=== PATIENT | male | born 2000 ===

== ENCOUNTER 2023-08-06 15:26 | Inpatient (IN) | payer MEDICAID, SELFPAY ==
[2023-08-06 15:36] VITALS: PULSE 94; O2SAT 98
--- NOTE | 2023-08-06 16:10 | ED.PSYCH ---
HPI - Psych General Stated Complaint: Section 12, semi-cooperative Time Seen by Provider: 08/06/23 15:52 Source: patient Mode of arrival: EMS Limitations: other History of Present Illness HPI Narrative: Patient comes to emergency room via ambulance on a Section 12. According to EMS, patient's partner called. Apparently, the patient was acting strange, mumbling. Patient was released from care home yesterday. According to patient's partner, patient does not have any history of drug use or psychiatric disorders. Here in the emergency room, patient is unable to tell us why he is here. He Patient is awake and alert, but he is very paranoid and very disorganized speech. Related Data Allergies Allergy/AdvReac Type Severity Reaction Status Date / Time No Known Allergies Allergy Verified 08/06/23 16:08 Review of Systems Review of Systems: Yes Other Physical Exam Const: Other: Appearance: Alert. No acute distress Eyes: Pupils equal, round and reactive to light. ENT: Pharynx normal. Neck: Normal inspection. Neck supple. No lymph nodes noted. No crepitus CVS: Normal heart rate and rhythm. Pulses normal. Normal S1 and S2 Respiratory: No respiratory distress. Breath sounds normal. No Wheezing. No rales Abdomen: Soft and nontender. No rigidity. No distention. Skin: Skin warm and dry. Normal skin color. Normal skin turgor. Extremities: No lower extremity edema. No Lacerations. No Rash Neuro: no motor deficit. No sensory deficit. Moving all extremities. No slurred speech. CN 2 through 12 grossly intact Psych: calm, cooperative, answering questions inappropriately, paranoid, disorganized speech Course Course Course Narrative: -all of patient's labs pending -care team consult pending Medical Decision Making Differential Diagnosis Differential Diagnoses: The differential diagnosis associated with the presentation includes (New onset schizophrenia, polysubstance abuse, alcohol abuse, bipolar disorder) Admission/Observation Consideration of admission/observation: Escalation of care including admission/observation considered (Patient is on a Section 12 started in the community, care team consult pending to determine patient's disposition, likely in patient) Discharge Plan Discharge Clinical Impression: Abnormal behavior Patient Disposition: Still a Patient
[2023-08-06 16:18] VITALS: BP 127/77; PULSE 90; RESP 16; TEMP 36.9; O2SAT 96; BMI 20.2
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
--- NOTE | 2023-08-06 20:20 | MHC.EDTECH ---
pt Refused bloodwork at this time
[2023-08-06] MEDS: diphenhydrAMINE HCL 50 MG/ML VIAL IM (23:37)
--- NOTE | 2023-08-06 23:38 | PC.NURSE ---
Pt given IM benadryl due to continuous coming out of room , invading other patients privacy and not respecting the rules of the Pod. Pt had to be redirected numerous times and asked not to go into other patients rooms . Security was called as well to help deescalate the situation with minimal success. Pt was educated on the medication being given and the reason for administeration.
[2023-08-07] VITALS (15 sets, daily range): BP systolic 70–116; BP diastolic 33–90; PULSE 59–97; RESP 14–19; TEMP 36.2–37.3; O2SAT 96–100
--- NOTE | 2023-08-07 | ECG_ITS ---
Test Reason : QT CHECK Blood Pressure : / mmHG Vent. Rate : 086 BPM Atrial Rate : 086 BPM P-R Int : 120 ms QRS Dur : 080 ms QT Int : 358 ms P-R-T Axes : 079 082 072 degrees QTc Int : 428 ms Normal sinus rhythm Normal ECG No previous ECGs available Referred By: Generic ED Physician Electronically Signed By:DAYSI CASTELLON
--- NOTE | 2023-08-07 00:34 | PC.NURSE ---
pt now calmly and comfortably resting in bed.
--- NOTE | 2023-08-07 08:27 | PC.NURSE ---
Late entry for resuming care at 0700, patient continues to pace unit, asking staff multiple questions, not easily redirected. Pt continues to not give staff a urine sample even stating multiple times he will, unable to obtain blood work. Will continue to attempt to receive orders and redirect patient
[2023-08-07] MEDS: LORazepam 2 MG/ML VIAL IM (09:39)
[2023-08-07] MEDS: diphenhydrAMINE HCL 50 MG/ML VIAL IM (09:39)
[2023-08-07] MEDS: Haloperidol Lactate 5 MG/ML VIAL 10 MG IM (09:39)
--- NOTE | 2023-08-07 09:40 | PC.NURSE ---
Attempted to give pt PO medication to help with behaviors, pt put medications in his mouth and then spit them out, and threw them away, pt then started to smell the water and did not trust to take medications or drink anything. Provider notified, IM medication ordered, this typewriters functional tester and 3 staff members including security at bedside with patient, IM administered with ease, pt tearful, but continues to be jumpy with staff, untrustworthy of eating/drinking. Attempted to get lab work, but will need to attempt again later as patient would not sit still for labs
--- NOTE | 2023-08-07 10:10 | PC.NURSE ---
Pt moved to RM 19 from Pod assumed care at this time.
--- NOTE | 2023-08-07 10:15 | PC.NURSE ---
Pt placed in 4 point restraints at 0947. after IM patient through his breakfast tray across the room at staff, began slamming on the souza and doors of the nurses station and bathroom, along with other patients room. Pt corning staff, and other patients. At 1010 Pt moved to main ED to be placed on monitor as BP began to drop and pt began looking pale, charge nurse and provider aware, secuirty at bedside to help transfer pt to main ED. bedside report given to RN
[2023-08-07 10:28] LABS: MANUAL DIFF FLAG NO
[2023-08-07 10:29] LABS: Basophils Percent Auto 0.4 % (0-2); Eosinophils Percent Auto 0.4 % (0-4); Hematocrit 42.1 % (42.0-52.0); Hemoglobin 14.5 g/dl (14.0-18.0); Imm Gran Abs Auto 0.01 X10*3/uL (0.00-0.03); Imm Gran Pct Auto 0.2 % (0.0-0.4); Lymphocytes Absolute Auto 1.2 X10*3/uL (1.2-4.9); Lymphocytes Percent Auto 23.5 % (20-40); Mean Corpuscular HGB Conc 34.4 g/dl (31.0-36.0); Mean Platelet Volume 9.5 fL (9.4-12.4); Monocytes Absolute Auto 0.4 X10*3/uL (0.1-1.2); Monocytes Percent Auto 8.1 % (2-11); Neutrophils Absolute Auto 3.6 x10*3/uL (2.0-8.3); Neutrophils Percent Auto 67.4 % (45-73); Platelet Count 244 X10*3/uL (160-400); Red Blood Count 4.68 X10*6/uL (4.60-5.80); Red Cell Distribution Width 12.6 % (11.0-16.0); White Blood Count 5.3 X10*3/uL (4.8-10.8)
--- NOTE | 2023-08-07 10:29 | PC.NURSE ---
Pt resting on stretcher eyes closed, skin pwd respirations even unlabored, VSS. NSR on monitor, BP improved. Labs drawn without incident. Pt compliant with care. Pt observer at bedside for safety 1:1 maintained.
[2023-08-07 10:52] LABS: Alanine Aminotransferase 12 U/L (0-40); Albumin Level 4.5 g/dL (3.5-5.0); Alkaline Phosphatase 61 U/L (39-117); Anion Gap 12 (12-20); Aspartate Amino Transferase 28 U/L (5-37); Bilirubin Direct 0.3 mg/dL (0.0-0.5); Bilirubin Total 0.9 mg/dL (0.0-1.0); Blood Urea Nitrogen 19 mg/dL (9-16); Calcium 9.2 mg/dL (8.4-10.2); Carbon Dioxide 26 mmol/L (22-29); Chloride 106 mmol/L (96-108); Creatinine Clr Calc Pharmacy 88.4; Estimated Glomerular Filt Rate > 60; Ethanol < 10 mg/dL; Glucose Random 102 mg/dL (60-115); Potassium 3.5 mmol/L (3.3-5.1); Sodium 140 mmol/L (135-145); Total Protein 7.2 g/dL (6.5-8.0)
[2023-08-07 11:09] LABS: TSH reflex Free T4 0.91 uIU/mL (0.32-4.0)
--- NOTE | 2023-08-07 11:33 | PC.NURSE ---
Pt continues to rest on stretcher eyes closed, skin pwd respirations even unlabored. VSS. NSR on monitor. Pt observer at bedside 1:1 maintained.
--- NOTE | 2023-08-07 13:42 | PC.NURSE ---
Pt remains resting on stretcher skin pwd respirations even unlabored. VSS, NSR on monitor. Pt observer at bedside for safety, 1:1 maintained.
--- NOTE | 2023-08-07 14:18 | PC.NURSE ---
Pt moved back to Pod, bedside report given, pt exits my care at this time.
[2023-08-07 19:47] LABS: Appearance Urine Clear; Color Urine Yellow; Glucose Urine UA Negative (Negative); Leukocyte Esterase Urine Trace (Negative); Nitrite Urine Negative (Negative); PH 5.5 (5.0-9.0); Specific Gravity - Urine >= 1.030 (1.005-1.025); UMIC TRIGGER UACC YES; Urine Blood Negative (Negative); Urine Ketones Trace mg/dL (Negative); Urine Protein Trace mg/dL (Neg-Trace)
[2023-08-07 19:58] LABS: Amphetamine Screen Urine Not Detected (Not Detect); Barbiturates, Urine Not Detected (Not Detect); Benzodiazepines Screen Urine Not Detected (Not Detect); Cannabinoid Screen Urine POSITIVE (Not Detect); Cocaine Screen Urine Not Detected (Not Detect); Fentanyl, urine Not Detected (Not Detect); Opiate Screen Urine Not Detected (Not Detect); Phencyclidine Screen Urine Not Detected (Not Detect)
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
[2023-08-07 20:13] LABS: Bacteria Urine None Seen (None Seen); RBC Urine 0-2 /HPF (0-2); UACC Culture Trigger YES
[2023-08-07 23:33] LABS: COVID-19 Test Negative (Negative); IDNOW Serial# 6674DD1D
--- OUTSIDE RECORDS SUMMARY | 2023-08-07 23:46 | XMS_ITS | Continuity of Care Document ---
Author Name Unknown Organization [facility] ter Address [address] [place] [id number]- Care Team Providers Care Wire Dropper Name Role Phone Not on Staff, PCP Primary Care Physician Unavail able Encounter [facility] Date(s): 12/16/19 - 12/16/[address] [id number] Encounter Diagnosis Panic attack(Final) - 12/16/19 Discharge Disposition: A-D/C Home Attending Physician: Juliana Bella MD Admitting Physician: Juliana Bella MD Referring Physician: Not on Staff, Referring MD Allergies, Adverse Reactions, Alerts Substance Reaction Severity Status NKA Active Medications Adderall By Mouth, 2 times a day, 0 Refills, Maintenance, 03/04/15 12:16:18 Start Date: 03/04/15 Status: Ordered Adderall By Mouth, 2 times a day, 0 Refills, Maintenance, 03/22/19 23:10:00 EDT Start Date: 03/22/19 Status: Ordered Adderall 15 mg oral tablet 1 tablet = 15 mg, By Mouth, 2 times a day, 0 Refills, Maintenance, 03/23/19 2:12:18 EDT, Tablet Start Date: 03/23/19 Status: Ordered amitriptyline 10 mg oral tablet 10 mg, 1, tablet, By Mouth, Daily at bedtime, Refills 0, Maintenance, 03/23/19 2:16:42 EDT Start Date: 03/23/19 Status: Ordered Clonidine 0 Refills, Maintenance, 03/04/15 12:16:04 Start Date: 03/04/15 Status: Ordered cloNIDine 0.3 mg oral tablet 1 tablet = 0.3 mg, By Mouth, Once, 0 Refills, Maintenance, 05/17/17 22:24:05 Start Date: 05/17/17 Status: Ordered cyproheptadine 4 mg oral tablet 4 mg, 1, tablet, By Mouth, Daily at bedtime, Refills 0, Maintenance, 05/17/17 22:52:26 Start Date: 05/17/17 Status: Ordered cyproheptadine 4 mg oral tablet 4 mg, 1, tablet, By Mouth, 2 times a day, Refills 0, Maintenance, 03/23/19 2:14:49 EDT Start Date: 03/23/19 Status: Ordered Flonase 50 mcg/inh nasal spray 1 sprays, Nares, Both, Daily, # 16 Gm, 0 Refills, Maintenance, 04/23/19 22:25:13 EDT, [place] Start Date: 04/23/19 Stop Date: 05/23/19 Status: Ordered FLUoxetine 10 mg oral tablet 1 tablet = 10 mg, By Mouth, Daily, 0 Refills, Maintenance, 05/17/17 22:43:19 Start Date: 05/17/17 Status: Ordered ibuprofen 400 mg oral tablet 400 mg, 1, tablet, By Mouth, Every 6 hours, PRN, # 60 tablet, Refills 0, Tot. Refills 0, Maintenance, Pain, 03/14/17 22:58:26, Print Requisition Start Date: 03/14/17 Status: Ordered Zofran ODT 4 mg oral tablet, disintegrating 1 tablet = 4 mg, By Mouth, Every 8 hours, PRN as needed for nausea/vomiting, # 10 tablet, 0 Refills, Maintenance, 03/14/17 22:58:40 Start Date: 03/14/17 Status: Ordered Problem List Condition Effective Dates Status Health Status Inform ant Short stature for age(Confirmed) Active Vital Signs Most recent to oldest [Reference Range]: 1 2 3 Weight 38.3 kg (12/16/19 5:43 AM) 38.3 kg (12/16/19 4:25 AM) 38.3 kg (12/16/19 4:22 AM) Oxygen Saturation [94-100 %] 100 % (12/16/19 5:43 AM) 97 % (12/16/19 4:22 AM) Pulse Rate [55-90 bpm] 56 bpm (12/16/19 5:43 AM) 62 bpm (12/16/19 4:22 AM) Blood Pressure [71-110/30-71 mm Hg] 119/80mm Hg *H* (12/16/19 5:43 AM) 116/71mm Hg *H* (12/16/19 4:22 AM) Respiratory Rate [16-30 br/min] 16 br/min (12/16/19 5:43 AM) 18 br/min (12/16/19 4:22 AM) Temperature [96.8-100.4 DegF] 97.5 DegF (12/16/19 5:43 AM) 98.4 DegF (12/16/19 4:22 AM) Mode of Delivery (Oxygen) Room air (12/16/19 5:43 AM) Room air (12/16/19 4:22 AM) Blood pressure sites Arm, left (12/16/19 5:43 AM) Temperature Route Oral (12/16/19 5:43 AM) Oral (12/16/19 4:22 AM) Dry Weight 38.3 kg (12/16/19 5:43 AM) 38.3 kg (12/16/19 4:25 AM) 38.3 kg (12/16/19 4:22 AM) Weight Obtained Via Standing scale (12/16/19 4:22 AM) Dry Weight Obtained Via Standing scale (12/16/19 4:22 AM) Social History Social History Type Response Smoking Status Never smoker entered on: 03/04/15 Sex
--- OUTSIDE RECORDS SUMMARY | 2023-08-07 23:46 | XMS_ITS | Continuity of Care Document ---
Author Name Unknown Organization [facility] ter Address [address] [place] [id number]- Care Team Providers Care Squash Centre Manager Name Role Phone Not on Staff, PCP Primary Care Physician Unavail able [place] [facility] [place](s[place] 07/17/21 - 07/18/[address] [address]- Encounter Diagnosis Agitation(Final) - 07/18/21 Discharge Disposition: A-D/C Home Attending Physician: Scottie Grant MD Admitting Physician: Scottie Grant MD Referring Physician: Not on Staff, Referring [...] Gm, 0 Refills, Maintenance, 04/23/19 22:25:13 EDT, [place] Start Date: 04/23/19 Stop Date: 05/23/19 Status: [...] to oldest [Reference Range]: 1 2 3 Oxygen Saturation [94-100 %] 99 % (07/18/21 7:41 AM) 99 % (07/18/21 5:24 AM) 100 % (07/18/21 3:21 AM) Pulse Rate [55-90 bpm] 70 bpm (07/18/21 7:41 AM) 63 bpm (07/18/21 5:24 AM) 75 bpm (07/18/21 3:21 AM) Blood Pressure [90-138/55-84 mm Hg] 106/66mm Hg (07/18/21 7:41 AM) 104/66mm Hg (07/18/21 5:24 AM) 94/50mm Hg (07/18/21 3:21 AM) Respiratory Rate [16-30 br/min] 18 br/min (07/18/21 7:41 AM) 20 br/min (07/18/21 5:24 AM) 16 br/min (07/18/21 3:21 AM) Temperature [96.8-100.4 DegF] 98.8 DegF (07/18/21 5:24 AM) 98.0 DegF (07/18/21 3:21 AM) 97.9 DegF (07/18/21 12:36 AM) Liters per Minute 4 L/min (07/18/21 1:50 AM) 4 L/min (07/18/21 12:43 AM) 4 L/min (07/17/21 10:54 PM) Mode of Delivery (Oxygen) Room air (07/18/21 7:41 AM) Room air (07/18/21 5:24 AM) Room air (07/18/21 3:21 AM) Blood pressure sites Arm, left (07/18/21 7:41 AM) Arm, right (07/18/21 5:24 AM) Temperature Route Oral (07/18/21 5:24 AM) Oral (07/18/21 3:21 AM) Oral (07/18/21 12:36 AM) Social History Social History Type Response Smoking Status Never smoker entered on: 03/04/15 Sex
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
[2023-08-08 01:39] VITALS: BMI 15.9
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
[2023-08-08 07:00] VITALS: BMI 16.5
[2023-08-08 07:59] VITALS: BP 113/68; PULSE 87; RESP 14; TEMP 36.4; O2SAT 98
[2023-08-08 08:52] LABS: Estimated Average Glucose 100 mg/dL; Hemoglobin A1c % 5.1 % (<6.0)
[2023-08-08 09:09] LABS: Alanine Aminotransferase 18 U/L (0-40); Albumin Level 4.5 g/dL (3.5-5.0); Alkaline Phosphatase 79 U/L (39-117); Anion Gap 12 (12-20); Aspartate Amino Transferase 44 U/L (5-37); Bilirubin Total 0.9 mg/dL (0.0-1.0); Blood Urea Nitrogen 16 mg/dL (9-16); Calcium 9.5 mg/dL (8.4-10.2); Carbon Dioxide 30 mmol/L (22-29); Chloride 101 mmol/L (96-108); Cholesterol 149 mg/dL (<200); Creatinine Clr Calc Pharmacy 65.9; Estimated Glomerular Filt Rate > 60; Glucose Fasting 105 mg/dL (60-99); HDL Cholesterol 48 mg/dL (>40); LDL Cholesterol Calculated 77 mg/dL (<100); Sodium 139 mmol/L (135-145); Total Protein 7.5 g/dL (6.5-8.0); Triglycerides 123 mg/dL (<150)
[2023-08-08 09:26] LABS: Thyroid Stimulating Hormone 0.89 uIU/mL (0.32-4.0)
[2023-08-08 09:36] LABS: Folate 9.2 ng/mL (> or = 4.0)
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
[2023-08-08 14:52] LABS: Vitamin B12 620 pg/mL (200-900)
[2023-08-08 21:15] VITALS: BP 144/88; PULSE 84; RESP 16; TEMP 36.5; O2SAT 99
[2023-08-09 07:10] VITALS: BP 120/68; PULSE 79; RESP 16; TEMP 36.6; O2SAT 99
--- NOTE | 2023-08-09 09:45 | HO.PSYCHPN ---
Subjective Subjective Date of Service: 08/09/23 Reason For Visit: SI Subjective Notes: Conditional Voluntary Interim History: Pt slept most of the night. He appeared fearful and hypervigilant. He asks this selling underwriter if I am lying to him and then asked: Am I going to ? He denies SI/HI. He reports feeling very anxious here on the unit but at the same time not having place to go. He initally was hesitant about taking some medications, but finally agreed to try risperidone 0.5mg po BID and clonazepam 0.5mg po BID. He had first dose and appeared to be beneficial. Review of Systems Review of Systems Yes Other Mental Status Exam Mental Status Exam Narrative: Appearance: wearing hospital gown, thin, in NAD Behavior: cooperative Psychomotor: no agitation or retardation noted Speech: clear, normal rate/rhythm/volume, spontaneous TP: mostly linear, at times tangential but no loose associations or derailment TC: feeling calmer and safer here on the unit, hoping to be discharged soon Mood: better' Affect: congruent SI: denies HI: none VH/AH: no signs Delusions: no overt delusional content noted or reported Insight/judgment: fair x 2. Memory/cog: alert, oriented x 3. grossly intact to conversational testing. Diagnostics Vital Signs (24Hr): Vital Signs - 24 hr 08/08/23 21:15 08/09/23 07:10 Temperature 97.7 F 97.8 F Pulse Rate 84 79 Respiratory Rate 16 16 Blood Pressure 144/88 H 120/68 Pulse Oximetry 99 99 Oxygen Delivery Method Room Air Room Air BMI result Body Mass Index 16.5 Labs 08/07/23 10:22 08/08/23 08:37 Labs: Laboratory Results - last 48 hr 08/07/23 08/07/23 08/07/23 10:22 19:34 23:11 WBC 5.3 RBC 4.68 Hgb 14.5 Hct 42.1 MCV 90.0 MCH 31.0 MCHC 34.4 RDW 12.6 Plt Count 244 MPV 9.5 Immature Gran % (Auto) 0.2 Neut % (Auto) 67.4 Lymph % (Auto) 23.5 [place] % (Auto) 8.1 Eos % (Auto) 0.4 Baso % (Auto) 0.4 Lymph # (Auto) 1.2 [place] # (Auto) 0.4 Eos # (Auto) 0.0 Baso # (Auto) 0.0 Abs Immat Gran (auto) 0.01 Absolute Neuts (auto) 3.6 Absolute Nucleated RBC 0.000 Nucleated RBC % (auto) 0.0 Sodium 140 Potassium 3.5 Chloride 106 Carbon Dioxide 26 Anion Gap 12 BUN 19 H Creatinine 0.84 Estim Creat Clear Calc 88.4 Estimated GFR > 60 Random Glucose 102 Fasting Glucose Estimat Average Glucose Hemoglobin A1c % Calcium 9.2 Total Bilirubin 0.9 Direct Bilirubin 0.3 AST 28 ALT 12 Alkaline Phosphatase 61 Total Protein 7.2 Albumin 4.5 Triglycerides Cholesterol LDL Cholesterol, Calc HDL Cholesterol Vitamin B12 Folate TSH 0.91 Urine Color Yellow Urine Appearance Clear Urine pH 5.5 Ur Specific Martin >= 1.030 H Urine Protein Trace Urine Glucose (UA) Negative Urine Ketones Trace Urine Blood Negative Urine Nitrite Negative Ur Leukocyte Esterase Trace H Urine RBC 0-2 Urine WBC 6-10 H Ur Squamous Epith Cells 3-5 Urine Bacteria None Seen Hyaline Casts 6-10 Urine Opiates Screen Not Detected Urine Fentanyl Screen Not Detected Ur Barbiturates Screen Not Detected Ur Phencyclidine Scrn Not Detected Ur Amphetamines Screen Not Detected U Benzodiazepines Scrn Not Detected Urine Cocaine Screen Not Detected U Marijuana (THC) Screen POSITIVE H Ethyl Alcohol < 10 COVID-19 (DOROTHY) Negative COVID-19 Clin Com See Note 08/08/23 08:37 WBC RBC Hgb Hct MCV MCH MCHC RDW Plt Count MPV Immature Gran % (Auto) Neut % (Auto) Lymph % (Auto) [place] % (Auto) Eos % (Auto) Baso % (Auto) Lymph # (Auto) [place] # (Auto) Eos # (Auto) Baso # (Auto) Abs Immat Gran (auto) Absolute Neuts (auto) Absolute Nucleated RBC Nucleated RBC % (auto) Sodium 139 Potassium 4.0 Chloride 101 Carbon Dioxide 30 H Anion Gap 12 BUN 16 Creatinine 0.89 Estim Creat Clear Calc 65.9 Estimated GFR > 60 Random Glucose Fasting Glucose 105 H Estimat Average Glucose 100 Hemoglobin A1c % 5.1 Calcium 9.5 Total Bilirubin 0.9 Direct Bilirubin AST 44 H ALT 18 Alkaline Phosphatase 79 Total Protein 7.5 Albumin 4.5 Triglycerides 123 Cholesterol 149 LDL Cholesterol, Calc 77 HDL Cholesterol 48 Vitamin B12 620 Folate 9.2 TSH 0.89 Urine Color Urine Appearance Urine pH Ur Specific Martin Urine Protein Urine Glucose (UA) Urine Ketones Urine Blood Urine Nitrite Ur Leukocyte Esterase Urine RBC Urine WBC Ur Squamous Epith Cells Urine Bacteria Hyaline Casts Urine Opiates Screen Urine Fentanyl Screen Ur Barbiturates Screen Ur Phencyclidine Scrn Ur Amphetamines Screen U Benzodiazepines Scrn Urine Cocaine Screen U Marijuana (THC) Screen Ethyl Alcohol COVID-19 (DOROTHY) COVID-19 Clin Com Medications Medications Current Medications Acetaminophen (Acetaminophen 325 Mg Tablet) 650 mg PO Q6H PRN PRN Reason: Headache/Pain Mild Scale (1-3) Al Hydroxide/Mg Hydroxide (Magnesium Hydrox/Alum Hydrox 30 Ml Oral.Susp) 30 ml PO Q6H PRN PRN Reason: Heartburn/Nausea Hydroxyzine HCl (Hydroxyzine Hcl 25 Mg Tablet) 25 mg PO Q6H PRN PRN Reason: Anxiety Magnesium Hydroxide (Milk Of Magnesia 30 Ml Oral.Susp) 30 ml PO DAILY PRN PRN Reason: Constipation Trazodone HCl (Trazodone Hcl 50 Mg Tablet) 50 mg PO BEDTIME PRN PRN Reason: Insomnia Allergies Allergies Allergy/AdvReac Type Severity Reaction Status Date / Time No Known Allergies Allergy Verified 08/06/23 16:08 Assessment & Plan Assessment & Plan (1) Brief psychotic disorder: Status: Acute Code(s): F23 - Brief psychotic disorder (2) PTSD (post-traumatic stress disorder): Status: Acute Code(s): F43.10 - Post-traumatic stress disorder, unspecified Plan Mr. Santos is a 23 year-old male with hx extensive hx of trauma but no prior hx of psychiatric tx who was [place] [facility] ex-partner called 911 reporting pt appeared incoherent and acting in a bizarre way (not much detail provided). In the ED, pt did present as paranoid, suspicious, not engaging with providers or nursing in meaningful way. He was observed grabbing other peers belonging and intrusive. At some point he was difficult to redirect and required haldol 10mg IM, benadryl 50mg IM and ativan 2mg IM. On the unit, pt presents as much calmer, no overt psychosis or delusional content noted or reported. In the ED, he was positive for cannabinoids. Unclear if brief psychotic presentation related to cannabis induced or trauma related reaction given that he was brought against his will and against it. He denies SI/HI. PLAN 08/09- pt more fearful and hypervigilant, dysphoric mood.discussed risks, benefits and alternative treatment options, pt agreed to start risperidone 0.5mg po BID and clonazepam 0.5mg po BID. Reason for continued inpatient stay Substantial Risk for: inability to function Time Spent With Patient Time: Total time managing care of this patient today ____ minutes.
[2023-08-09] MEDS: risperiDONE 0.5 MG TABLET PO ×2 (11:20→21:24)
[2023-08-09] MEDS: clonazePAM 0.5 MG TABLET PO ×2 (11:21→21:24)
[2023-08-09] MEDS: hydrOXYzine HCL 25 MG TABLET PO ×2 (15:07→21:24)
[2023-08-09 20:30] VITALS: BP 110/68; PULSE 80; RESP 16; TEMP 36.4; O2SAT 98
[2023-08-10 07:45] VITALS: BP 129/78; PULSE 85; RESP 16; TEMP 36.4; O2SAT 100
[2023-08-10] MEDS: risperiDONE 0.5 MG TABLET PO ×2 (08:08→20:49)
[2023-08-10] MEDS: clonazePAM 0.5 MG TABLET PO ×2 (08:08→20:49)
[2023-08-10] MEDS: Acetaminophen 325 MG TABLET 650 MG PO (14:28)
[2023-08-10] MEDS: hydrOXYzine HCL 25 MG TABLET PO (17:30)
[2023-08-10 20:45] VITALS: BP 149/70; PULSE 89; RESP 16; TEMP 36.4; O2SAT 100
[2023-08-10] MEDS: traZODone HCL 50 MG TABLET PO (22:37)
[2023-08-10] MEDS: Milk of Magnesia 30 ML ORAL.SUSP PO (22:37)
--- NOTE | 2023-08-10 22:40 | HO.PSYCHPN ---
Subjective Subjective Date of Service: 08/10/23 Reason For Visit: SI Interim History: cc: I'd like to leave and get my belongings Patient approached me while he was walking hallway with headphones. He is insisting he is fine and he doesnt need to be here. He shares relationship problems with older male whom he had been staying with. He says he took the risperidone last night and did sleep but adds that he feels all he actually needs is to take his ADHD meds and anxiety meds. He also says that he has never realaly slept much his whole life on account of being scared of people. He agrees to contiue on the risperidone which may help with PTSD symptoms. Mental Status Exam Mental Status Exam Narrative: Alert, oriented, in no acute distress. Casually dressed. Calm, cooperative, forthcoming, evasive. Eye contact good. Mood stressed , affect variable Normal speech. talkative without pressured speech. Thought process scattered without FOI or JANETH. Thought content relevant to stressors. No SI or HI on inquiry. No evidence of federico or psychosis. Cognition grossly intact. Sensorium clear. Insight and judgment fair but adequate Diagnostics Vital Signs (24Hr): Vital Signs - 24 hr 08/10/23 07:45 08/10/23 20:45 Temperature 97.6 F 97.6 F Pulse Rate 85 89 Respiratory Rate 16 16 Blood Pressure 129/78 149/70 H Pulse Oximetry 100 100 Oxygen Delivery Method Room Air Room Air BMI result Body Mass Index 16.5 Labs 08/07/23 10:22 08/08/23 08:37 Medications Medications Current Medications Acetaminophen (Acetaminophen 325 Mg Tablet) 650 mg PO Q6H PRN PRN Reason: Headache/Pain Mild Scale (1-3) Last Admin: 08/10/23 14:28 Dose: 650 mg Al Hydroxide/Mg Hydroxide (Magnesium Hydrox/Alum Hydrox 30 Ml Oral.Susp) 30 ml PO Q6H PRN PRN Reason: Heartburn/Nausea Clonazepam (Clonazepam 0.5 Mg Tablet) 0.5 mg PO BID SILAS Last Admin: 08/10/23 20:49 Dose: 0.5 mg Hydroxyzine HCl (Hydroxyzine Hcl 25 Mg Tablet) 25 mg PO Q6H PRN PRN Reason: Anxiety Last Admin: 08/10/23 17:30 Dose: 25 mg Magnesium Hydroxide (Milk Of Magnesia 30 Ml Oral.Susp) 30 ml PO DAILY PRN PRN Reason: Constipation Last Admin: 08/10/23 22:37 Dose: 30 ml Risperidone (Risperidone 0.5 Mg Tablet) 0.5 mg PO BID SILAS Last Admin: 08/10/23 20:49 Dose: 0.5 mg Trazodone HCl (Trazodone Hcl 50 Mg Tablet) 50 mg PO BEDTIME PRN PRN Reason: Insomnia Last Admin: 08/10/23 22:37 Dose: 50 mg Allergies Allergies Allergy/AdvReac Type Severity Reaction Status Date / Time No Known Allergies Allergy Verified 08/06/23 16:08 Assessment & Plan Assessment & Plan (1) Brief psychotic disorder: Status: Acute Code(s): F23 - Brief psychotic disorder (2) PTSD (post-traumatic stress disorder): Status: Acute Code(s): F43.10 - Post-traumatic stress disorder, unspecified Plan Mr. Santos is a 23 year-old male with hx extensive hx of trauma but no prior hx of psychiatric tx who was brought to [facility] [place] ED after ex-partner called 911 reporting pt appeared incoherent and acting in a bizarre way (not much detail provided). In the ED, pt did present as paranoid, suspicious, not engaging with providers or nursing in meaningful way. He was observed grabbing other peers belonging and intrusive. At some point he was difficult to redirect and required haldol 10mg IM, benadryl 50mg IM and ativan 2mg IM. On the unit, pt presents as much calmer, no overt psychosis or delusional content noted or reported. In the ED, he was positive for cannabinoids. Unclear if brief psychotic presentation related to cannabis induced or trauma related reaction given that he was brought against his will and against it. He denies SI/HI. PLAN 08/09- pt more fearful and hypervigilant, dysphoric mood.discussed risks, benefits and alternative treatment options, pt agreed to start risperidone 0.5mg po BID and clonazepam 0.5mg po BID. cotninue treatment Reason for continued inpatient stay Substantial Risk for: inability to function, rapid decompensation and med/psych decompensation Time Spent With Patient Time: Total time managing care of this patient today ____ minutes.
[2023-08-11] MEDS: hydrOXYzine HCL 25 MG TABLET PO (06:23)
[2023-08-11 08:10] VITALS: BP 130/70; PULSE 99; RESP 16; TEMP 36.1; O2SAT 100
[2023-08-11] MEDS: risperiDONE 0.5 MG TABLET PO ×2 (08:11→20:12)
[2023-08-11] MEDS: clonazePAM 0.5 MG TABLET PO ×2 (08:11→20:12)
[2023-08-11 19:50] VITALS: BP 124/72; PULSE 85; RESP 16; TEMP 36.8; O2SAT 99
[2023-08-11] MEDS: traZODone HCL 50 MG TABLET PO ×2 (20:12→23:38)
--- NOTE | 2023-08-11 22:37 | HO.PSYCHPN ---
Subjective Subjective Date of Service: 08/11/23 Reason For Visit: SI Interim History: cc: Call me Wesley Patient was more talkative today, sharing personal details about identifying as gender fuild and prefers pronouns she or they. Patient reports having a good day, spoke with uncle who says that they can come live with him once they are discharged. Their uncle said they could get a dog and that he will come to the unit soon to visit them. Mood is better denies SI or HI. . Medication Compliance: Yes Side effects from medications: No Mental Status Exam Mental Status Exam Narrative: Alert, oriented, in no acute distress. Casually dressed. Calm, cooperative, forthcoming, superifical, less odd. Eye contact good. Mood better , affect brighter. Normal speech. talktive without pressured speech. No evidence of thought disorder. Thought content relevant to stressors. No SI or HI on inquiry. No evidence of federico or psychosis. Cognition grossly intact. Sensorium clear. Insight and judgment fair but adequate Diagnostics Vital Signs (24Hr): Vital Signs - 24 hr 08/11/23 08:10 08/11/23 19:50 Temperature 97.0 F 98.2 F Pulse Rate 99 85 Respiratory Rate 16 16 Blood Pressure 130/70 124/72 Pulse Oximetry 100 99 Oxygen Delivery Method Room Air Room Air BMI result Body Mass Index 16.5 Labs 08/07/23 10:22 08/08/23 08:37 Medications Medications Current Medications Acetaminophen (Acetaminophen 325 Mg Tablet) 650 mg PO Q6H PRN PRN Reason: Headache/Pain Mild Scale (1-3) Last Admin: 08/10/23 14:28 Dose: 650 mg Al Hydroxide/Mg Hydroxide (Magnesium Hydrox/Alum Hydrox 30 Ml Oral.Susp) 30 ml PO Q6H PRN PRN Reason: Heartburn/Nausea Clonazepam (Clonazepam 0.5 Mg Tablet) 0.5 mg PO BID SILAS Last Admin: 08/11/23 20:12 Dose: 0.5 mg Hydroxyzine HCl (Hydroxyzine Hcl 25 Mg Tablet) 25 mg PO Q6H PRN PRN Reason: Anxiety Last Admin: 08/11/23 06:23 Dose: 25 mg Magnesium Hydroxide (Milk Of Magnesia 30 Ml Oral.Susp) 30 ml PO DAILY PRN PRN Reason: Constipation Last Admin: 08/10/23 22:37 Dose: 30 ml Risperidone (Risperidone 0.5 Mg Tablet) 0.5 mg PO BID SILAS Last Admin: 08/11/23 20:12 Dose: 0.5 mg Trazodone HCl (Trazodone Hcl 50 Mg Tablet) 50 mg PO BEDTIME PRN PRN Reason: Insomnia Last Admin: 08/11/23 20:12 Dose: 50 mg Allergies Allergies Allergy/AdvReac Type Severity Reaction Status Date / Time No Known Allergies Allergy Verified 08/06/23 16:08 Assessment & Plan Assessment & Plan (1) Brief psychotic disorder: Status: Acute Code(s): F23 - Brief psychotic disorder (2) PTSD (post-traumatic stress disorder): Status: Acute Code(s): F43.10 - Post-traumatic stress disorder, unspecified Plan Mr. Santos is a 23 year-old male with hx extensive hx of trauma but no prior hx of psychiatric tx who was brought [place] [facility] [place] after ex-partner called 911 reporting pt appeared incoherent and acting in a bizarre way (not much detail provided). In the ED, pt did present as paranoid, suspicious, not engaging with providers or nursing in meaningful way. He was observed grabbing other peers belonging and intrusive. At some point he was difficult to redirect and required haldol 10mg IM, benadryl 50mg IM and ativan 2mg IM. On the unit, pt presents as much calmer, no overt psychosis or delusional content noted or reported. In the ED, he was positive for cannabinoids. Unclear if brief psychotic presentation related to cannabis induced or trauma related reaction given that he was brought against his will and against it. He denies SI/HI. PLAN 08/09- pt more fearful and hypervigilant, dysphoric mood.discussed risks, benefits and alternative treatment options, pt agreed to start risperidone 0.5mg po BID and clonazepam 0.5mg po BID. continue treatment Reason for continued inpatient stay Substantial Risk for: rapid decompensation and med/psych decompensation Time Spent With Patient Time: Total time managing care of this patient today ____ minutes.
[2023-08-11] MEDS: Magnesium Hydrox/Alum Hydrox 30 ML ORAL.SUSP PO (23:49)
[2023-08-12 06:00] VITALS: BP 120/69; PULSE 83; RESP 18; TEMP 36.3; O2SAT 99
[2023-08-12] MEDS: risperiDONE 0.5 MG TABLET PO ×2 (08:27→21:01)
[2023-08-12] MEDS: clonazePAM 0.5 MG TABLET PO ×2 (08:27→21:01)
[2023-08-12] MEDS: Acetaminophen 325 MG TABLET 650 MG PO (11:51)
[2023-08-12 21:00] VITALS: BP 133/70; PULSE 92; RESP 18; TEMP 36.1; O2SAT 98
[2023-08-12] MEDS: traZODone HCL 50 MG TABLET PO (21:01)
--- NOTE | 2023-08-12 21:45 | HO.PSYCHPN ---
Subjective Subjective Date of Service: 08/12/23 Reason For Visit: SI Interim History: Patient was seen walking the hallways with headphones on. He continues to present as bright, superficial. Says he is doing well. Mood is great...been real happy . Denies any helplessness, hopelessness or SI. He reports feeling he is back to his normal self. He says he plans to no longer drink. I was drinking when I said I was going to kill myself He reports that he needs to give that up along with marijuana which he says is less of an issue. He adds that he spoke to his BF/partner about this who is fully supportive. Mental Status Exam Mental Status Exam Narrative: Alert, oriented, in no acute distress. Casually dressed. Calm, cooperative, forthcoming. Eye contact good. Mood euthymic, affect bright. Normal speech. No evidence of thought disorder. Thought content relevant to stressors. No SI or HI on inquiry. No evidence of federico or psychosis. Cognition grossly intact. Sensorium clear. Insight and judgment fair/good Diagnostics Vital Signs (24Hr): Vital Signs - 24 hr 08/12/23 06:00 08/12/23 21:00 Temperature 97.3 F 96.9 F Pulse Rate 83 92 Respiratory Rate 18 18 Blood Pressure 120/69 133/70 Pulse Oximetry 99 98 Oxygen Delivery Method Room Air Room Air BMI result Body Mass Index 16.5 Labs 08/07/23 10:22 08/08/23 08:37 Medications Medications Current Medications Acetaminophen (Acetaminophen 325 Mg Tablet) 650 mg PO Q6H PRN PRN Reason: Headache/Pain Mild Scale (1-3) Last Admin: 08/12/23 11:51 Dose: 650 mg Al Hydroxide/Mg Hydroxide (Magnesium Hydrox/Alum Hydrox 30 Ml Oral.Susp) 30 ml PO Q6H PRN PRN Reason: Heartburn/Nausea Last Admin: 08/11/23 23:49 Dose: 30 ml Clonazepam (Clonazepam 0.5 Mg Tablet) 0.5 mg PO BID SILAS Last Admin: 08/12/23 21:01 Dose: 0.5 mg Hydroxyzine HCl (Hydroxyzine Hcl 25 Mg Tablet) 25 mg PO Q6H PRN PRN Reason: Anxiety Last Admin: 08/11/23 06:23 Dose: 25 mg Magnesium Hydroxide (Milk Of Magnesia 30 Ml Oral.Susp) 30 ml PO DAILY PRN PRN Reason: Constipation Last Admin: 08/10/23 22:37 Dose: 30 ml Risperidone (Risperidone 0.5 Mg Tablet) 0.5 mg PO BID SILAS Last Admin: 08/12/23 21:01 Dose: 0.5 mg Trazodone HCl (Trazodone Hcl 50 Mg Tablet) 50 mg PO BEDTIME PRN PRN Reason: Insomnia Last Admin: 08/12/23 21:01 Dose: 50 mg Allergies Allergies Allergy/AdvReac Type Severity Reaction Status Date / Time No Known Allergies Allergy Verified 08/06/23 16:08 Assessment & Plan Assessment & Plan (1) Brief psychotic disorder: Status: Acute Code(s): F23 - Brief psychotic disorder (2) PTSD (post-traumatic stress disorder): Status: Acute Code(s): F43.10 - Post-traumatic stress disorder, unspecified Plan Mr. Santos is a 23 year-old male with hx extensive hx of trauma but no prior hx of psychiatric tx who was brought to [facility] [place] ED after ex-partner called 911 reporting pt appeared incoherent and acting in a bizarre way (not much detail provided). In the ED, pt did present as paranoid, suspicious, not engaging with providers or nursing in meaningful way. He was observed grabbing other peers belonging and intrusive. At some point he was difficult to redirect and required haldol 10mg IM, benadryl 50mg IM and ativan 2mg IM. On the unit, pt presents as much calmer, no overt psychosis or delusional content noted or reported. In the ED, he was positive for cannabinoids. Unclear if brief psychotic presentation related to cannabis induced or trauma related reaction given that he was brought against his will and against it. He denies SI/HI. PLAN 08/09- pt more fearful and hypervigilant, dysphoric mood.discussed risks, benefits and alternative treatment options, pt agreed to start risperidone 0.5mg po BID and clonazepam 0.5mg po BID. Reason for continued inpatient stay Substantial Risk for: inability to function and med/psych decompensation Time Spent With Patient Time: Total time managing care of this patient today ____ minutes.
[2023-08-13] MEDS: hydrOXYzine HCL 25 MG TABLET PO (04:07)
--- NOTE | 2023-08-13 04:27 | PC.NURSE ---
Derrick was noted to be visible on the unit. utilizing phone, socializing with select peers. future focused. 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 It really helps me get my mind off of things. patient stated that he remains anxious but is no longer feeling depressed. he endorses racing thoughts but denies suicidal/homicidal ideation and auditory/visual hallucinations. Utilizing PRN Trazadone with positive effectmonitor for safety, continue plan of Care
[2023-08-13 07:35] VITALS: BP 127/72; PULSE 90; RESP 16; TEMP 36.6; O2SAT 99
[2023-08-13] MEDS: clonazePAM 0.5 MG TABLET PO ×2 (08:55→20:04)
[2023-08-13] MEDS: risperiDONE 0.5 MG TABLET PO ×2 (08:55→20:04)
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
[2023-08-13] MEDS: Acetaminophen 325 MG TABLET 650 MG PO (14:13)
[2023-08-13 20:00] VITALS: BP 109/76; PULSE 84; RESP 14; TEMP 36.5; O2SAT 98
[2023-08-13] MEDS: traZODone HCL 50 MG TABLET PO (20:04)
[2023-08-14] MEDS: traZODone HCL 50 MG TABLET PO (02:25)
[2023-08-14] MEDS: hydrOXYzine HCL 25 MG TABLET PO (02:25)
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
[2023-08-14] MEDS: risperiDONE 0.5 MG TABLET PO (06:32)
[2023-08-14] MEDS: clonazePAM 0.5 MG TABLET PO (06:33)
--- NOTE | 2023-08-14 06:54 | PC.NURSE ---
discharge note-patient being discharged at 0700 so that he can attend and be on time for his scheduled court date/time. feels ready for discharge reporting medications helpful. denies SI/HI. plan, medications reviewed. belongings returned. given 0900 medications early due to discharge.
== END 2023-08-14 07:12 | disposition home or self-care (01) | DRG 885 ==
LOC: HO.ED 08-07 17:51 → HO.PADLT16 08-07 23:44
PROVIDERS: Emergency Medicine; Emergency Medicine Emergency Medical Services; Admitting Provider Social Worker; Emergency Provider Emergency Medicine; Visit Provider Psychiatry & Neurology Psychiatry
DX: F23 Brief psychotic disorder (principal); F43.10 Post-traumatic stress disorder, unspecified; Z20.822 Contact with and (suspected) exposure to COVID-19; Z78.1 Physical restraint status; Z62.810 Personal history of physical and sexual abuse in childhood; Z63.4 Disappearance and death of family member; Z62.811 Personal history of psychological abuse in childhood; Z79.899 Other long term (current) drug therapy
CPT/HCPCS: 36415; 80048; 80053; 80061; 80076; 80307; 81001; 82607; 82746; 83036; 84443; 85025; 87086; 87635; 93005; 99285; J1200; J1630; J2060; S9485

== ENCOUNTER 2023-08-07 22:51 | Outpatient (BNV) | payer MEDICAID, SELFPAY | END 2023-08-07 23:03 | PROVIDERS: Admitting Provider Social Worker; Emergency Provider Emergency Medicine; Visit Provider Internal Medicine | DX: I45.89 Other specified conduction disorders (principal) | CPT/HCPCS: 93010 ==

== ENCOUNTER → 2023-08-07 22:51 | Outpatient (BNV) | payer MEDICAID, SELFPAY | PROVIDERS: Admitting Provider Social Worker; Emergency Provider Emergency Medicine; Visit Provider Social Worker | DX: F23 Brief psychotic disorder (principal); F43.11 Post-traumatic stress disorder, acute | CPT/HCPCS: 90792; 99231; 99232; 99239 ==

== ENCOUNTER 2023-08-15 22:43 | Emergency (ER) | payer MEDICAID, SELFPAY ==
[2023-08-15 22:50] VITALS: BP 126/78; PULSE 96; RESP 18; TEMP 36.6; O2SAT 97; BMI 18.4
== END 2023-08-16 02:54 | disposition left against medical advice (07) ==
PROVIDERS: Emergency Provider Emergency Medicine
DX: F43.0 Acute stress reaction (principal)
CPT/HCPCS: 99281